=== PATIENT | female | born 1980 | race Two or more races ===

== ENCOUNTER 2023-03-31 16:08 | Emergency (ER) | payer SELFPAY ==
[~2023-03-31] VITALS: Ht 160 cm; Wt 72.9 kg
[2023-03-31 20:00] VITALS: BP 107/61; PULSE 96; TEMP 99
[2023-03-31 21:18] LABS: COVID19 ANTIGEN SOFIA FIA NEGATIVE (NEGATIVE)
[2023-03-31] MEDS ORDERED: IPRATROPIUM BROM 0.5 MG/2.5ML INH SOL ONE (21:49)
[2023-03-31] MEDS ORDERED: ALBUTEROL SULF 2.5 MG/0.5ML(0.5%) NEB SOLN ONE (21:49)
[2023-03-31] MEDS ORDERED: ALBUAER3 IN (21:51)
[2023-03-31] MEDS ORDERED: PRED20TA2 PO (21:51)
[2023-03-31] MEDS ORDERED: AZITTAB PO (21:51)
[2023-03-31] MEDS ORDERED: BENZ200C64 PO (21:51)
[2023-03-31 22:12] VITALS: RESP 18; O2SAT 98
== END 2023-03-31 22:52 | disposition home or self-care (01) ==
LOC: EDBD 16:08 → ER 16:08
DX: J20.9 Acute bronchitis, unspecified (principal); Z20.822 Contact with and (suspected) exposure to COVID-19
CPT/HCPCS: 36415; 71045; 87426; 94640; 99284; J7644